=== PATIENT | female | born 1970 | race Caucasian/White ===

== ENCOUNTER → 2022-09-26 10:54 | Outpatient (CLI) | payer BC, SELFPAY ==
--- NOTE | ~2022-09-26 | XR_ITS ---
EXAMINATION: XR thoracic spine 2V DATE: 09/26/2022 11:51 INDICATION: Back pain TECHNIQUE: AP, lateral and lateral swimmer's views of the thoracic spine were obtained. COMPARISON: None. FINDINGS: There are 10 degrees of upper thoracic levocurvature. The vertebral body heights and alignm ent are normal. There is mild to moderate loss of intervertebral disc space height throughout the mid thoracic spine. Small degenerative osteophytes project from the anterior endplates of multiple verteb ral bodies. Surgical clips in the right upper quadrant are likely from prior cholecystectomy. IMPRESSION: 1. Moderate thoracic spondylosis without acute findings. Reviewed, dictated and finalized at location B.
--- NOTE | ~2022-09-26 | XR_ITS ---
EXAMINATION: XR lumbar spine 2-3V DATE: 09/26/2022 11:51 INDICATION: Low back pain TECHNIQUE: Anteroposterior and lateral views of the lumbar spine, and cone-down lateral view of the l umbosacral junction were obtained. COMPARISON: None. FINDINGS: The vertebral body heights and alignment are normal. There is severe loss of intervertebral disc space height at L5-S1. Small degenerative osteophytes project from the anterior endplates of mu ltiple vertebral bodies. There is mild facet joint osteoarthritis at L5-S1. Phleboliths are noted in the pelvis. A moderate volume of colonic stool is present. Surgical clips in the right upper quadrant are likely from prior cholecystectomy. IMPRESSION: 1. Moderate to severe lumbar spondylosis at L5-S1. Reviewed, dictated and finalized at location B.
--- NOTE | ~2022-09-26 | XR_ITS ---
EXAMINATION:XR_[id number]_CR DATE: 09/26/2022 11:51 INDICATION: Neck pain TECHNIQUE: AP, lateral, lateral swimmers and odontoid views of the cervical spine are provided. COMPARISON: None FINDINGS: There are 2 mm of anterolisthesis of C4 on C5. The odontoid process is intact. No fracture is identified. The vertebral body heights are normal. There is mild loss of intervertebral disc space height at C5-C6 and C6-7. Small degenerative osteophytes project from the anterior endplates of mult iple vertebral bodies. There is multilevel severe facet and uncovertebral joint osteoarthritis. Preve rtebral soft tissues are normal. IMPRESSION: 1. Moderate cervical spondylosis without acute findings. Reviewed, dictated and finalized at location B.
== END ==
PROVIDERS: PCP Chiropractor; Visit Provider Chiropractor
DX: M47.896 Other spondylosis, lumbar region (principal); M47.894 Other spondylosis, thoracic region; M47.892 Other spondylosis, cervical region
CPT/HCPCS: 72040; 72070; 72100